=== PATIENT | female | born 1975 | race Caucasian/White ===

== ENCOUNTER 2017-12-10 18:36 | Emergency (ER) | payer OTHER ==
[2017-12-10 18:53] VITALS: BP 127/85; PULSE 84; RESP 18; TEMP 97.6; O2SAT 100
== END 2017-12-10 19:30 | disposition left against medical advice (07) ==
LOC: C.ER 18:36
DX: Z02.89 Encounter for other administrative examinations (principal); R10.13 Epigastric pain